=== PATIENT | male | born 1950 | race Caucasian/White ===

== ENCOUNTER 2022-05-16 09:00 | Emergency (ER) | payer OTHER ==
[~2022-05-16] VITALS: Ht 180.3 cm; Wt 104.3 kg
[2022-05-16] MEDS ORDERED: CYCL10 PO (09:42)
== END 2022-05-16 10:38 | disposition home or self-care (01) ==
LOC: ER 09:00
DX: M54.50 Low back pain, unspecified (principal)
CPT/HCPCS: A9270; J1885

== ENCOUNTER 2025-07-02 13:27 | Emergency (ER) | payer OTHER ==
[~2025-07-02] VITALS: Ht 180.3 cm; Wt 106.6 kg
[~2025-07-02 13:27] MED LIST: CYCL10 PO
[2025-07-02 14:48] LABS: BASOPHILS ABSOLUTE AUTO 0.03 K/mm3 (0.00-0.23); BASOPHILS PERCENT AUTO 0 % (0-2); EOSINOPHILS ABSOLUTE AUTO 0.16 K/mm3 (0.00-0.68); EOSINOPHILS PERCENT AUTO 2 % (0-6); Hematocrit 49.6 % (37.0-53.0); Hemoglobin 17.3 g/dL (13.5-17.5); IMMATURE GRAN ABSOLUTE AUTO 0.03 K/mm3 (0.00-0.10); IMMATURE GRAN PERCENT AUTO 0 % (0-1); LYMPHOCYTES ABSOLUTE AUTO 0.81 K/mm3 (0.84-5.20); LYMPHOCYTES PERCENT AUTO 12 % (21-46); MONOCYTES ABSOLUTE AUTO 0.85 K/mm3 (0.16-1.47); MONOCYTES PERCENT AUTO 13 % (4-13); Mean Corpuscular HGB Conc 34.9 g/dL (31.5-36.5); Mean Corpuscular Volume 88 fL (80-100); NEUTROPHILS ABSOLUTE AUTO 4.88 K/mm3 (1.96-9.15); NEUTROPHILS PERCENT AUTO 72 % (41-73); NRBC ABSOLUTE 0.00 K/mm3 (0.00-0.02); NRBC Auto 0.0 /100 WBC (0.0-0.2); Platelet Count 273 K/mm3 (150-400); RDW Coefficient Variation 13.4 % (11.7-14.2); RDW Standard Deviation 43.2 fL (35.1-46.3)
[2025-07-02 16:06] LABS: Alanine Aminotransfer (ALT/SGP 63.0 U/L (12-78); Albumin, Blood 4.2 g/dL (3.4-5.0); Albumin/Globulin Ratio 1.2 (0.8-1.8); Anion Gap 14.0 mmol/L (3-11); Aspartate Aminotrans (AST/SGOT 40.0 U/L (12-37); Bilirubin, Total 1.1 mg/dL (0.1-1.0); Blood Urea Nitrogen 18.0 mg/dL (8-24); CO2, Blood 23.0 mmol/L (21-32); Calcium, Blood 9.5 mg/dL (8.5-10.1); Chloride, Blood 96.0 mmol/L (98-108); Creatinine, Blood 1.0 mg/dL (0.60-1.20); Globulin, Blood 3.4 g/dL (2.2-4.0); Glucose, Blood 99.0 mg/dL (70-99); Potassium, Blood 4.2 mmol/L (3.5-5.5); Sodium, Blood 129.0 mmol/L (136-145); Total Protein, Blood 7.6 g/dL (6.4-8.2)
[2025-07-02 18:06] LABS: BASOPHILS ABSOLUTE AUTO 0.04 K/mm3 (0.00-0.23); BASOPHILS PERCENT AUTO 1 % (0-2); EOSINOPHILS ABSOLUTE AUTO 0.16 K/mm3 (0.00-0.68); EOSINOPHILS PERCENT AUTO 2 % (0-6); Hematocrit 47.4 % (37.0-53.0); Hemoglobin 16.9 g/dL (13.5-17.5); IMMATURE GRAN ABSOLUTE AUTO 0.02 K/mm3 (0.00-0.10); IMMATURE GRAN PERCENT AUTO 0 % (0-1); LYMPHOCYTES ABSOLUTE AUTO 0.78 K/mm3 (0.84-5.20); LYMPHOCYTES PERCENT AUTO 10 % (21-46); MONOCYTES ABSOLUTE AUTO 0.74 K/mm3 (0.16-1.47); MONOCYTES PERCENT AUTO 9 % (4-13); Mean Corpuscular HGB Conc 35.7 g/dL (31.5-36.5); Mean Corpuscular Volume 86 fL (80-100); NEUTROPHILS ABSOLUTE AUTO 6.23 K/mm3 (1.96-9.15); NEUTROPHILS PERCENT AUTO 78 % (41-73); NRBC ABSOLUTE 0.00 K/mm3 (0.00-0.02); NRBC Auto 0.0 /100 WBC (0.0-0.2); Platelet Count 270 K/mm3 (150-400); RDW Coefficient Variation 13.5 % (11.7-14.2); RDW Standard Deviation 42.5 fL (35.1-46.3)
[2025-07-02 19:32] LABS: Source, Urine Clean Catch
[2025-07-02 19:42] LABS: Bilirubin, Urine Neg (Neg); Color, Urine Red (P-Yellow); Glucose Qualitative, Urine Neg (Neg); Ketones, Urine 1+ (Neg); Leukocyte Esterase, Urine 3+ (Neg); Protein, Urine 3+ (Neg); Specific Gravity, Urine 1.005 (1.003-1.022); Urobilinogen, Urine NORM (Normal)
[2025-07-02 19:45] VITALS: BP 137/87
[2025-07-02 19:51] LABS: Red Blood Cells, Urine TNTC /hpf (0-2); White Blood Cells, Urine 25-50 /hpf (0-5)
[2025-07-03] MEDS ORDERED: ROSUVASTATIN CA10 MG PO (09:31)
[2025-07-03] MEDS ORDERED: LISI20 PO (09:32)
[2025-07-03] MEDS ORDERED: CHLO25B PO (09:32)
[2025-07-03] MEDS ORDERED: COGNIQUIL CAPS1 EACH PO (09:33)
== END 2025-07-02 19:50 | disposition home or self-care (01) ==
LOC: ER 13:27
PROVIDERS: Emergency Medicine; Physician Assistant
DX: N32.0 Bladder-neck obstruction (principal); R31.0 Gross hematuria; Z79.899 Other long term (current) drug therapy
CPT/HCPCS: 36415; 51700; 51798; 80053; 81001; 83690; 85025; 87086; 99283-25

== ENCOUNTER 2025-07-03 07:46 | Emergency (ER) | payer OTHER ==
[~2025-07-03] VITALS: Ht 180.3 cm; Wt 106.6 kg
[2025-07-03] MEDS ORDERED: ROSUVASTATIN CA10 MG PO (09:31)
[2025-07-03] MEDS ORDERED: LISI20 PO (09:32)
[2025-07-03] MEDS ORDERED: CHLO25B PO (09:32)
[2025-07-03] MEDS ORDERED: COGNIQUIL CAPS1 EACH PO (09:33)
[2025-07-03 09:45] LABS: Source, Urine Clean Catch
[2025-07-03 09:49] LABS: Bilirubin, Urine Neg (Neg); Color, Urine Red (P-Yellow); Glucose Qualitative, Urine Neg (Neg); Ketones, Urine 1+ (Neg); Leukocyte Esterase, Urine Neg (Neg); Protein, Urine 4+ (Neg); Specific Gravity, Urine 1.015 (1.003-1.022); Urobilinogen, Urine NORM (Normal)
[2025-07-03 10:32] LABS: Red Blood Cells, Urine TNTC /hpf (0-2)
[2025-07-03 11:12] LABS: Alanine Aminotransfer (ALT/SGP 52.0 U/L (12-78); Albumin, Blood 3.8 g/dL (3.4-5.0); Albumin/Globulin Ratio 1.3 (0.8-1.8); Anion Gap 10.0 mmol/L (3-11); Aspartate Aminotrans (AST/SGOT 29.0 U/L (12-37); Bilirubin, Total 1.0 mg/dL (0.1-1.0); Blood Urea Nitrogen 18.0 mg/dL (8-24); CO2, Blood 29.0 mmol/L (21-32); Calcium, Blood 9.4 mg/dL (8.5-10.1); Chloride, Blood 97.0 mmol/L (98-108); Creatinine, Blood 0.97 mg/dL (0.60-1.20); Globulin, Blood 2.9 g/dL (2.2-4.0); Glucose, Blood 107.0 mg/dL (70-99); Potassium, Blood 4.2 mmol/L (3.5-5.5); Sodium, Blood 132.0 mmol/L (136-145); Total Protein, Blood 6.7 g/dL (6.4-8.2)
[2025-07-03 11:19] LABS: BASOPHILS ABSOLUTE AUTO 0.03 K/mm3 (0.00-0.23); BASOPHILS PERCENT AUTO 0 % (0-2); EOSINOPHILS ABSOLUTE AUTO 0.22 K/mm3 (0.00-0.68); EOSINOPHILS PERCENT AUTO 3 % (0-6); Hematocrit 42.3 % (37.0-53.0); Hemoglobin 14.9 g/dL (13.5-17.5); IMMATURE GRAN ABSOLUTE AUTO 0.02 K/mm3 (0.00-0.10); IMMATURE GRAN PERCENT AUTO 0 % (0-1); LYMPHOCYTES ABSOLUTE AUTO 0.66 K/mm3 (0.84-5.20); LYMPHOCYTES PERCENT AUTO 9 % (21-46); MONOCYTES ABSOLUTE AUTO 0.73 K/mm3 (0.16-1.47); MONOCYTES PERCENT AUTO 10 % (4-13); Mean Corpuscular HGB Conc 35.2 g/dL (31.5-36.5); Mean Corpuscular Volume 86 fL (80-100); NEUTROPHILS ABSOLUTE AUTO 5.45 K/mm3 (1.96-9.15); NEUTROPHILS PERCENT AUTO 77 % (41-73); NRBC ABSOLUTE 0.00 K/mm3 (0.00-0.02); NRBC Auto 0.0 /100 WBC (0.0-0.2); Platelet Count 246 K/mm3 (150-400); RDW Coefficient Variation 13.6 % (11.7-14.2); RDW Standard Deviation 42.2 fL (35.1-46.3)
[2025-07-03 14:00] VITALS: BP 117/71
== END 2025-07-03 15:41 | disposition home or self-care (01) ==
LOC: ER 07:46
PROVIDERS: Student in an Organized Health Care Education/Training Program
DX: R31.9 Hematuria, unspecified (principal); Z79.899 Other long term (current) drug therapy
CPT/HCPCS: 74178; 80053; 81001; 85025; 87086; 99284-25; A9270; Q9967